=== PATIENT | male | born 1960 ===

== ENCOUNTER 2019-05-23 12:13 | Inpatient (IN) | payer OTHER ==
[~2019-05-23] VITALS: Ht 182.9 cm; Wt 95.6 kg
[2019-05-23] VITALS (32 sets, daily range): BP systolic 125–156; BP diastolic 63–101; PULSE 97–117; TEMP 99.1–99.2; O2SAT 89–99
[2019-05-23 12:47] LABS: BASO % 0.3 % (0.0-2.0); EOS # 0.1 (0.0-0.7); EOS % 0.7 % (0-4.0); GRAN # 6.1 (1.4-6.5); GRAN % 57.3 % (42.2-75.2); HEMOGLOBIN 16.1 g/dl (13.5-18.0); LYMPH # 3.9 (1.2-3.4); LYMPH % 35.8 % (20.0-51.0); MEAN CELL VOLUME 88 fl (80.0-100.0); MEAN CORPUSCULAR HEMOGLOBIN 32 pg (27.0-31.0); MEAN CORPUSCULAR HGB CONC 36 g/dl (33.0-37.0); MEAN PLATELET VOLUME 10.9 fl (7.4-10.4); MONO # 0.6 (0.1-0.6); MONO % 5.1 % (1.7-9.3); PLATELET COUNT 269 K/mm3 (130-400); RED BLOOD COUNT 5.09 M/mm3 (4.20-5.60); REDCELL DISTRIBUTION WIDTH-CV 11.9 % (11.5-14.5)
[2019-05-23 12:53] LABS: INR 0.9 (0.8-3.0); PROTHROMBIN TIME 10.5 SECONDS (9.7-12.8)
[2019-05-23 12:55] LABS: PARTIAL THROMBOPLASTIN TIME 31.9 SECONDS (26.0-37.0)
[2019-05-23 13:28] LABS: COLLECTION METHOD CLEAN CATCH
[2019-05-23 13:38] LABS: MUCOUS Present /lpf; PH 5 (5-8); SQUAMOUS EPITHELIAL 0-2 /hpf; URINE APPEARANCE Clear; URINE BACTERIA None Seen /hpf; URINE BILIRUBIN Negative (NEGATIVE); URINE BLOOD 1+ (NEGATIVE); URINE COLOR Yellow; URINE GLUCOSE 3+ (NEGATIVE); URINE KETONE Negative (NEGATIVE); URINE LEUKOCYTE ESTERASE Negative (NEGATIVE); URINE NITRATE Negative (NEGATIVE); URINE PROTEIN(semi-quant) 1+ (NEGATIVE); URINE RBC 0-2 /hpf; URINE UROBILINOGEN Negative (NEGATIVE)
[2019-05-23 14:54] LABS: ALBUMIN 4.5 gm/dL (3.5-5.0); BILIRUBIN,TOTAL 0.6 mg/dL (0.0-1.0); CREATININE, serum 0.72 (0.66-1.25); POTASSIUM 4.5 mmol/L (3.4-5.0); TOTAL PROTEIN 8.1 gm/dL (6.4-8.2)
[2019-05-23 16:50] LABS: ARTERIAL BLD GAS O2 SATURATION 91.8 % (92-100); ARTERIAL BLOOD GAS BASE EXCESS -4.1 (-2-2); ARTERIAL BLOOD GAS HCO3 22.6 meq/L (22-26); ARTERIAL BLOOD GAS PCO2 47.1 mmHg (35-45); ARTERIAL BLOOD GAS PO2 65.9 mmHg (80-100)
[2019-05-23 17:03] LABS: PHOSPHOROUS 5.5 mg/dL (2.5-4.5)
--- NOTE | 2019-05-23 17:09 | NUR ---
Dr Forte in to see pt at this time.
--- NOTE | 2019-05-23 19:20 | NUR ---
Dr Mendoza at bedside talking with family at this time. Bedside report given to Jenny HUTCHINS and care transfered.
[2019-05-23 19:28] LABS: ARTERIAL BLD GAS O2 SATURATION 95.1 % (92-100); ARTERIAL BLD GAS TCO2 CT 23.1; ARTERIAL BLOOD GAS BASE EXCESS -3.7 (-2-2); ARTERIAL BLOOD GAS HCO3 21.8 meq/L (22-26); ARTERIAL BLOOD GAS PCO2 41.4 mmHg (35-45); ARTERIAL BLOOD GAS PO2 76.9 mmHg (80-100); ARTERIAL BLOOD GAS pH 7.34 (7.35-7.45)
--- NOTE | 2019-05-23 20:00 | NUR ---
Patient assessed, vitals stable, POC reviewed with family and patient, questions encouraged. Will continue to educate and monitor.
[2019-05-23 21:35] LABS: HEMATOCRIT 43.9 % (42.0-52.0); HEMOGLOBIN 15.4 g/dl (13.5-18.0); MAGNESIUM 2.1 mg/dL (1.6-2.3); PHOSPHOROUS 4.8 mg/dL (2.5-4.5); POTASSIUM 4.7 mmol/L (3.4-5.0)
[2019-05-23 23:03] LABS: ARTERIAL BLD GAS O2 SATURATION 95.3 % (92-100); ARTERIAL BLD GAS TCO2 CT 24.9; ARTERIAL BLOOD GAS BASE EXCESS -1.7 (-2-2); ARTERIAL BLOOD GAS HCO3 23.6 meq/L (22-26); ARTERIAL BLOOD GAS PCO2 42.2 mmHg (35-45); ARTERIAL BLOOD GAS PO2 76.6 mmHg (80-100); ARTERIAL BLOOD GAS pH 7.37 (7.35-7.45)
[2019-05-24] VITALS (775 sets, daily range): BP systolic 110–151; BP diastolic 80–98; PULSE 71–107; TEMP 97.4–99.8; O2SAT 81–100
[2019-05-24 05:47] LABS: ARTERIAL BLD GAS O2 SATURATION 97.2 % (92-100); ARTERIAL BLD GAS TCO2 CT 24.1; ARTERIAL BLOOD GAS BASE EXCESS -1.6 (-2-2); ARTERIAL BLOOD GAS HCO3 22.9 meq/L (22-26); ARTERIAL BLOOD GAS PCO2 38.5 mmHg (35-45); ARTERIAL BLOOD GAS PO2 91.4 mmHg (80-100); ARTERIAL BLOOD GAS pH 7.39 (7.35-7.45)
[2019-05-24 06:27] LABS: BASO % 0.2 % (0.0-2.0); EOS # 0.1 (0.0-0.7); EOS % 0.5 % (0-4.0); GRAN # 8.8 (1.4-6.5); GRAN % 74.6 % (42.2-75.2); HEMATOCRIT 39.8 % (42.0-52.0); HEMOGLOBIN 14.2 g/dl (13.5-18.0); LYMPH % 16.5 % (20.0-51.0); MEAN CELL VOLUME 91 fl (80.0-100.0); MEAN CORPUSCULAR HEMOGLOBIN 32 pg (27.0-31.0); MEAN CORPUSCULAR HGB CONC 36 g/dl (33.0-37.0); MEAN PLATELET VOLUME 10.3 fl (7.4-10.4); MONO # 0.9 (0.1-0.6); MONO % 7.9 % (1.7-9.3); PLATELET COUNT 214 K/mm3 (130-400); RED BLOOD COUNT 4.39 M/mm3 (4.20-5.60); REDCELL DISTRIBUTION WIDTH-CV 12.3 % (11.5-14.5)
[2019-05-24 06:41] LABS: ALBUMIN 3.9 gm/dL (3.5-5.0); BILIRUBIN,TOTAL 0.6 mg/dL (0.0-1.0); CREATININE, serum 0.58 (0.66-1.25); MAGNESIUM 2.1 mg/dL (1.6-2.3); PHOSPHOROUS 4.2 mg/dL (2.5-4.5); POTASSIUM 4.1 mmol/L (3.4-5.0); TOTAL PROTEIN 7.1 gm/dL (6.4-8.2)
--- NOTE | 2019-05-24 08:19 | NUR ---
Report received from Shannan HUTCHINS and care resumed. Pt resting upon assessment. No apparent signs of pain. 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 Insulin drip infusing, see IV flowsheet. Pt tolerating bipap well at this time. Will continue to follow.
--- NOTE | 2019-05-24 11:58 | NUR ---
Dr Packer in to see pt at this time.
--- NOTE | 2019-05-24 15:58 | NUR ---
Report given to Jenny HUTCHINS and care transfered.
--- NOTE | 2019-05-24 17:45 | NUR ---
Report given to CUONG Noland.
--- NOTE | 2019-05-24 19:50 | NUR ---
Family at beside visiting with patient. Patient alert and in no distress at this time. Checked chest tube site and chamber with off going nurse at this time.
[2019-05-25] VITALS (934 sets, daily range): BP systolic 117–162; BP diastolic 60–95; PULSE 83–95; TEMP 98.3–100.3; O2SAT 77–100
--- NOTE | 2019-05-25 00:15 | NUR ---
Patient resting in bed awake at this time. Tolerating BIPAP well. Assisted to a more comfortable position. VS stable and chest tube site and tubing assessed and working appropriately.
--- NOTE | 2019-05-25 02:57 | NUR ---
Tolerating BIPAP well; resting in bed with eyes shut. Chest tube working appropriately. Will continue to monitor.
[2019-05-25 05:52] LABS: BASO % 0.1 % (0.0-2.0); EOS % 0.1 % (0-4.0); GRAN # 13.4 (1.4-6.5); GRAN % 86.1 % (42.2-75.2); HEMATOCRIT 39.7 % (42.0-52.0); HEMOGLOBIN 13.5 g/dl (13.5-18.0); LYMPH % 6.2 % (20.0-51.0); MEAN CELL VOLUME 93 fl (80.0-100.0); MEAN CORPUSCULAR HEMOGLOBIN 32 pg (27.0-31.0); MEAN CORPUSCULAR HGB CONC 34 g/dl (33.0-37.0); MEAN PLATELET VOLUME 10.7 fl (7.4-10.4); MONO # 1.1 (0.1-0.6); PLATELET COUNT 191 K/mm3 (130-400); RED BLOOD COUNT 4.28 M/mm3 (4.20-5.60); REDCELL DISTRIBUTION WIDTH-CV 12.6 % (11.5-14.5)
[2019-05-25 06:00] LABS: CALCIUM 8.6 mg/dL (8.4-10.2); CREATININE, serum 0.64 (0.66-1.25); POTASSIUM 4.3 mmol/L (3.4-5.0)
--- NOTE | 2019-05-25 07:00 | NUR ---
BEDSIDE REPORT RECEIVED FROM CUONG RODRÍGUEZ. PATIENT CURRENTLY ON BIPAP AND SLEEPY. CARE TAKEN OVER AT THIS TIME.
--- NOTE | 2019-05-25 07:15 | NUR ---
Bedside report given to CUONG Caravjal. Patient care transfered.
--- NOTE | 2019-05-25 07:40 | NUR ---
PATIENT PLACED ON NASAL CANNULA AT THIS TIME.
--- NOTE | 2019-05-25 10:00 | NUR ---
PATIENT REQUESTS TO GO BACK ON BIPAP AFTER BEING OFF FOR OVER 2 HOURS. 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
--- NOTE | 2019-05-25 12:30 | NUR ---
PATIENT OFF/ON BIPAP THROUGHOUT THE DAY. HE APPEARS TO BE MUCH MORE ALERT AND COMFORTABLE SINCE STARTING TORADOL SCHEDULED DOSE. WILL CONTINUE TO MONITOR.
--- NOTE | 2019-05-25 16:30 | NUR ---
PATIENT CONTINUES TO DO WELL ON THE 4 L/MIN O2 VIA NASAL CANNULA. HE GOT OUT OF BED TO THE BSC TO TRY TO HAVE BOWEL MOVEMENT. HE WAS UNABLE TO HAVE BM. PATIENT TRANSFERRED BACK TO BED WITH 1:1 ASSIST. WILL CONTINUE TO MONITOR.
--- NOTE | 2019-05-25 19:15 | NUR ---
BEDSIDE REPORT GIVEN TO CUONG AMBROSIO. PATIENT AWAKE AND ALERT, VISITING WITH FAMILY. HE REPORTS THAT PAIN IS WELL CONTROLLED AT THIS TIME. CARE TURNED OVER AT THIS TIME.
[2019-05-26] VITALS (428 sets, daily range): BP systolic 105–160; BP diastolic 63–82; PULSE 67–91; TEMP 97.9–100; O2SAT 85–100
[2019-05-26 05:50] LABS: BASO % 0.3 % (0.0-2.0); EOS # 0.1 (0.0-0.7); EOS % 0.8 % (0-4.0); GRAN # 9.4 (1.4-6.5); HEMOGLOBIN 12.4 g/dl (13.5-18.0); LYMPH % 8.3 % (20.0-51.0); MEAN CELL VOLUME 92 fl (80.0-100.0); MEAN CORPUSCULAR HEMOGLOBIN 32 pg (27.0-31.0); MEAN CORPUSCULAR HGB CONC 35 g/dl (33.0-37.0); MEAN PLATELET VOLUME 10.2 fl (7.4-10.4); MONO % 8.4 % (1.7-9.3); PLATELET COUNT 159 K/mm3 (130-400); RED BLOOD COUNT 3.89 M/mm3 (4.20-5.60); REDCELL DISTRIBUTION WIDTH-CV 12.3 % (11.5-14.5)
[2019-05-26 05:51] LABS: HEMATOCRIT 35.7 % (42.0-52.0)
[2019-05-26 05:58] LABS: CALCIUM 8.5 mg/dL (8.4-10.2); CREATININE, serum 0.7 (0.66-1.25); POTASSIUM 3.9 mmol/L (3.4-5.0)
[2019-05-26 06:18] LABS: COLLECTION METHOD CLEAN CATCH
[2019-05-26 06:29] LABS: PH 5 (5-8); SQUAMOUS EPITHELIAL 0-2 /hpf; URINE APPEARANCE Clear; URINE BACTERIA None Seen /hpf; URINE BILIRUBIN Negative (NEGATIVE); URINE BLOOD 1+ (NEGATIVE); URINE COLOR Yellow; URINE GLUCOSE 3+ (NEGATIVE); URINE KETONE 1+ (NEGATIVE); URINE LEUKOCYTE ESTERASE Trace (NEGATIVE); URINE NITRATE Negative (NEGATIVE); URINE PROTEIN(semi-quant) 1+ (NEGATIVE); URINE RBC 0-2 /hpf; URINE UROBILINOGEN Negative (NEGATIVE)
--- NOTE | 2019-05-26 07:00 | NUR ---
Patient report recieved from CUONG Og. Patient resting and is assisted to reposition for comfort. Left chest tube to 20cm suction as ordered without leakage noted to water seal, positive serosanguinous drainage noted, insertion site with dressing CDI and tape reinforcement intact to tubing junction. Patient rates pain 2/10 and denies need for pain medication in addition to basal rate WATCH LEADER at this time. Family at bedside to assist with translation. All deny further needs. Care assumed.
--- NOTE | 2019-05-26 09:40 | NUR ---
Dr. Nichols rounds at this time. Chest tube placed to water seal as ordered. Patient ambulates with standby assistance to bedside recliner at this time. Care ongoing.
--- NOTE | 2019-05-26 11:42 | NUR ---
Dr. Mendoza rounds on patient at this time. discusses POC to include transfer to surgical floor. Dr. Forte notified and states he will enter transfer orders to floor. HS aware.
--- NOTE | 2019-05-26 13:24 | NUR ---
SW met with the patient, patient's (Maximino #[phone]), son (Colt ph#[phone]), and [id number] to discuss discharge plan. The patient is german speaking. The patient's son translated. The patient lives in [place] with his . Colt reports that the patient is independent with ADLs and has a cane. The patient does not have a PCP, but he is interested in getting set up with a PCP in [place]. SW provided the patient with a list of the different providers at [facility] and [facility]. The patient does not have advanced directives and he was not interested in completing them at this time. The patient plans to return home with his upon discharge. SW to continue to follow.
--- NOTE | 2019-05-26 13:52 | NUR ---
Report called to CUONG Paulino.
--- NOTE | 2019-05-26 14:14 | NUR ---
Patient transported via WC to surgical room 346. Belongings and chart sent with. Care transferred.
--- NOTE | 2019-05-26 14:20 | NUR ---
Received patient from ICU per w/c. O2 on at 4L/ nasal cannula. Left chest tube to water seal. Denies pain. Complained of nausea briefly. Family at bedside.
--- NOTE | 2019-05-26 18:00 | NUR ---
Sitting at side of bed without complaint. O2 on. Family in room.
[2019-05-27 04:00] VITALS: BP 116/71; PULSE 64; TEMP 98.3
--- NOTE | 2019-05-27 07:04 | NUR ---
PT HAD A DIFFICULT TIME GETTING COMFORTABLE LAST NIGHT, MOVING FROM CHAIR TO BED AND BACK AGAIN MULTIPLE TIMES. PT WAS IN BiPAP FOR APPROX. 5 HOURS.
--- NOTE | 2019-05-27 08:00 | NUR ---
Sitting up in chair. Denies pain. O2 on. Uses incentive spirometer to 1000 cc. Left chest tube to water seal with small amounts serosanguinous drainage. Family in room.
[2019-05-27 08:07] VITALS: BP 128/74; PULSE 80; TEMP 98.2
[2019-05-27 09:02] LABS: BASO % 0.2 % (0.0-2.0); EOS # 0.2 (0.0-0.7); EOS % 1.5 % (0-4.0); GRAN # 7.9 (1.4-6.5); GRAN % 80.9 % (42.2-75.2); HEMOGLOBIN 12.4 g/dl (13.5-18.0); LYMPH # 0.8 (1.2-3.4); LYMPH % 8.2 % (20.0-51.0); MEAN CELL VOLUME 93 fl (80.0-100.0); MEAN CORPUSCULAR HEMOGLOBIN 32 pg (27.0-31.0); MEAN CORPUSCULAR HGB CONC 34 g/dl (33.0-37.0); MEAN PLATELET VOLUME 10.7 fl (7.4-10.4); MONO # 0.9 (0.1-0.6); MONO % 8.9 % (1.7-9.3); PLATELET COUNT 205 K/mm3 (130-400); RED BLOOD COUNT 3.94 M/mm3 (4.20-5.60); REDCELL DISTRIBUTION WIDTH-CV 12.2 % (11.5-14.5)
[2019-05-27 09:07] LABS: HEMATOCRIT 36.7 % (42.0-52.0)
[2019-05-27 09:15] LABS: CALCIUM 8.2 mg/dL (8.4-10.2); CREATININE, serum 0.69 (0.66-1.25); POTASSIUM 4.2 mmol/L (3.4-5.0)
[2019-05-27 11:40] VITALS: BP 134/69; PULSE 72; TEMP 97.2
--- NOTE | 2019-05-27 14:00 | NUR ---
Respiratory treatment given. Portable chest x-ray done. Resting in bed without complaint.
--- NOTE | 2019-05-27 16:00 | NUR ---
Dr. Nichols dc'd chest tube. Vaseline pressure dressing to site. Procedure tolerated well by patient.
[2019-05-27 16:56] VITALS: BP 153/75; PULSE 79; TEMP 98.6
[2019-05-27 20:00] VITALS: BP 160/77; PULSE 87; TEMP 98.9
[2019-05-28] VITALS (10 sets, daily range): BP systolic 125–152; BP diastolic 59–81; PULSE 60–115; TEMP 97.3–98.5
--- NOTE | 2019-05-28 03:58 | NUR ---
patient doing well throughout the night. slept peacefully until 0400. patient wore bipap without complaints. on O2 via NC when off of bipap. patient denies pain or need for any more pain medication than accounting system expert is providing. took scheduled medications without difficulty. patient sitting up at edge of bed this am. no further needs at this time. will continue to monitor.
--- NOTE | 2019-05-28 04:13 | NUR ---
AFTER BREATHING TREEATMENT PT WAS WIDE AWAKE AND SITTING ON THE EDGE OF THE BED THEREFORE, I TOOK PT OFF BIPAP AND PUT HIM BACK ON THE ETCO2 CANNULA AND TURNED THE MONITOR BACK ON.
[2019-05-28 06:16] LABS: BASO % 0.3 % (0.0-2.0); EOS # 0.2 (0.0-0.7); EOS % 2.5 % (0-4.0); GRAN # 4.7 (1.4-6.5); GRAN % 69.4 % (42.2-75.2); HEMOGLOBIN 11.9 g/dl (13.5-18.0); LYMPH # 1.2 (1.2-3.4); LYMPH % 17.3 % (20.0-51.0); MEAN CELL VOLUME 92 fl (80.0-100.0); MEAN CORPUSCULAR HEMOGLOBIN 32 pg (27.0-31.0); MEAN CORPUSCULAR HGB CONC 34 g/dl (33.0-37.0); MEAN PLATELET VOLUME 10.3 fl (7.4-10.4); MONO # 0.7 (0.1-0.6); MONO % 10.1 % (1.7-9.3); PLATELET COUNT 195 K/mm3 (130-400); RED BLOOD COUNT 3.78 M/mm3 (4.20-5.60); REDCELL DISTRIBUTION WIDTH-CV 12.1 % (11.5-14.5)
[2019-05-28 06:20] LABS: CALCIUM 8.2 mg/dL (8.4-10.2); CREATININE, serum 0.66 (0.66-1.25); POTASSIUM 3.7 mmol/L (3.4-5.0)
[2019-05-28 06:29] LABS: HEMATOCRIT 34.7 % (42.0-52.0)
--- NOTE | 2019-05-28 10:00 | NUR ---
BULK SEALER OPERATOR discontinued. Educated patient on oral pain medication
--- NOTE | 2019-05-28 11:39 | NUR ---
Patient in bed resting. Alert and oriented x 3. Shift assessment complete. Spouse and daughter at bedside. Patient states pain only when moving. Tolerating diet. Denies further needs at this time.
--- NOTE | 2019-05-28 12:13 | NUR ---
First visit from the title i instructional assistant. No needs right now.
--- NOTE | 2019-05-28 16:45 | NUR ---
Transportation Manager met with the patient, patient's , and patient's daughter, Jillian (ph#[phone]) who acted as sign maker for patient. Patient states he works for [employer]. Per Jillian, patient is willing to have appointment set up for primary care with [facility], which accepts patients with no insurance coverage as part of their discount program. [facility] also has pharmacy on site and can provide discounts if patient is eligible. Patient will need financial assistance as he will need diabetic supplies and medications. MILLIE set up appointment for patient for this Tuesday at [facility]. Financial Screening appointment is scheduled for 9:00am and initial appointment for primary care is set for 9:50am. Patient will see Nurse Practitioner, Vance Mendez. MILLIE contacted Jillian who advised these appointment times would work. MILLIE notified Jillian of [facility]'s policy on appointment timeliness and she expressed understanding. SW to continue to follow to ensure safe discharge.
--- NOTE | 2019-05-28 18:44 | NUR ---
Patient has done well throughout the day. Pain well controlled with oral medications, states pain only present when moving. Denies further needs at this time. Will report off to machinist 2nd shift.
[2019-05-29 00:05] VITALS: BP 133/80; PULSE 86; TEMP 97.8
--- NOTE | 2019-05-29 01:08 | NUR ---
patient doing well throughout night. daughter and at bedside. took scheduled medications without difficulty. vaseline dressing to L chest tube site CDI. patient requested pain medication and was given a evelina along with the scheduled tylenol and toradol. NS running at 50 into L wrist. o2 at 2 l via NC. see assessment. no further needs at this time. will continue to monitor.
[2019-05-29 04:17] VITALS: BP 153/79; PULSE 77; TEMP 97.7
[2019-05-29 06:23] LABS: BASO % 0.3 % (0.0-2.0); EOS # 0.2 (0.0-0.7); GRAN # 4.2 (1.4-6.5); GRAN % 68.2 % (42.2-75.2); HEMATOCRIT 37.8 % (42.0-52.0); HEMOGLOBIN 12.8 g/dl (13.5-18.0); LYMPH # 1.1 (1.2-3.4); LYMPH % 18.5 % (20.0-51.0); MEAN CELL VOLUME 92 fl (80.0-100.0); MEAN CORPUSCULAR HEMOGLOBIN 31 pg (27.0-31.0); MEAN CORPUSCULAR HGB CONC 34 g/dl (33.0-37.0); MEAN PLATELET VOLUME 10.9 fl (7.4-10.4); MONO # 0.6 (0.1-0.6); MONO % 9.7 % (1.7-9.3); PLATELET COUNT 197 K/mm3 (130-400)
[2019-05-29 06:36] LABS: CALCIUM 8.7 mg/dL (8.4-10.2); CREATININE, serum 0.57 (0.66-1.25); POTASSIUM 3.9 mmol/L (3.4-5.0)
[2019-05-29 07:45] VITALS: BP 156/80; PULSE 62; TEMP 97.7
[2019-05-29] MEDS ORDERED: GLUCOPHAGE500 MG/TAB PO (07:49)
[2019-05-29] MEDS ORDERED: GLUCOSE TEST ST1 DEV MC (07:49)
[2019-05-29] MEDS ORDERED: LANCETS MC (07:49)
[2019-05-29] MEDS ORDERED: FREESTYLE PREC1 EAC5 MC (07:49)
--- NOTE | 2019-05-29 08:00 | NUR ---
Patient in bed resting. Family at bedside. Shift assessment complete. Patient denies pain at this time, states pain only present when moving around. States he does not have much of an appetite this AM. Educated patient on insulin and how to administer, encouraged patient to eat something. Denies further needs at this time.
[2019-05-29] MEDS ORDERED: NOVOLIN 70/30 710 ML SQ (10:21)
[2019-05-29] MEDS ORDERED: B-D SAFETY GLID1 DE1 SQ (10:21)
[2019-05-29] MEDS ORDERED: NORCO 325 MG-51 TAB PO (10:24)
--- NOTE | 2019-05-29 11:07 | NUR ---
Hospital Nursing Assistant attended clinical rounds with the team. Discharge planning was discussed along with patient's possible need for oxygen upon discharge. MILLIE contacted Evelyn, Cadet Deck from [facility] who advised [facility] may be able to provide financial assistance for medications upon discharge until patient gets set up with services through [facility]. SW confirmed with [facility] that a veneer press operator will be available for tomorrow's appointments. SW faxed needed prescriptions to [facility] and Evelyn to call patient's daughter, Jillian to discuss application through [facility]. SW to continue to follow.
[2019-05-29 11:36] VITALS: BP 165/78; PULSE 65; TEMP 97.8
--- NOTE | 2019-05-29 11:40 | NUR ---
PT AT REST ON ROOM AIR 97% WALKED APPROXIMATELY 300 FT ON ROOM AIR SPO2 97% BACK TO ROOM AT REST 97% PT HAD NO COMPLAINTS.
--- NOTE | 2019-05-29 14:00 | NUR ---
Discharge education provided to patient. Educated on signs and symptoms of infection and when to call provider. Educated on diabeties diet and all new medications. All questions answered. Denies further needs at this time. Patient out by wheelchair with surgical staff and family.
--- NOTE | 2019-05-29 14:32 | NUR ---
Conference Interpreter was notified by Small Lot Operator, Court from [facility] that they would not be able to assist with today's medications since the patient has not been seen by their physician in a long time. MILLIE prepared medication voucher and contacted [facility] to obtain prices. MILLIE met with patient and patient's daughter, Jililan to explain that patient would need to picker machine operator medications at [facility] prior to 6:00pm. Jillian expressed understanding. MILLIE obtained signature from patient on voucher and faxed voucher with prescriptions to [facility]. No additional concerns at this time.
--- NOTE | 2019-05-30 11:42 | NUR ---
Alcohol Still Operator was contacted after discharge by Court Analysis Director at [facility] who advised patient attended appointments this morning and is getting established with their services. No additional concerns at this time.
== END 2019-05-29 14:00 | disposition home or self-care (01) | DRG 199 ==
LOC: COL.ER 12:13 → EDBD 12:14 → ICU 13:58 → SURG 13:58 → ICU 15:45 → SURG 05-26 15:20
PROVIDERS: Emergency Medicine; Internal Medicine Pulmonary Disease; Nurse Practitioner Family; ADMIT Surgery
PROC: 0W9B30Z Drainage of Left Pleural Cavity with Drainage Device, Percutaneous Approach (ICD-10-PCS; principal; 2019-05-23)
DX: S27.0XXA Traumatic pneumothorax, initial encounter (principal); J96.01 Acute respiratory failure with hypoxia; S22.42XA Multiple fractures of ribs, left side, initial encounter for closed fracture; J98.11 Atelectasis; W12.XXXA Fall on and from scaffolding, initial encounter; E11.65 Type 2 diabetes mellitus with hyperglycemia; Y93.89 Activity, other specified; Y92.89 Other specified places as the place of occurrence of the external cause; Y99.0 Civilian activity done for income or pay; M25.561 Pain in right knee; Z79.4 Long term (current) use of insulin
CPT/HCPCS: 99223; 99232-AI; 99233-AI; 99239; A9284; J1170; J1650; J1815; J1885; J2270; J2543; J3360; J7030; Q9967